=== PATIENT | female | born 1995 | race Two or more races ===

== ENCOUNTER 2020-12-07 15:16 | Emergency (ER) | payer OTHER ==
[~2020-12-07] VITALS: Ht 157.5 cm; Wt 81.6 kg
[2020-12-07] MEDS ORDERED: PRENATABS FA T1 EACH PO (15:36)
== END 2020-12-07 19:26 | disposition home or self-care (01) ==
LOC: ER 15:16
DX: O20.8 Other hemorrhage in early pregnancy (principal); Z3A.08 8 weeks gestation of pregnancy

== ENCOUNTER 2021-02-05 19:43 | Emergency (ER) | payer OTHER ==
[~2021-02-05] VITALS: Ht 152.4 cm; Wt 84.8 kg
[~2021-02-05 19:43] MED LIST: PRENATABS FA T1 EACH PO
[2021-02-05] MEDS ORDERED: 3-DAY VAGINAL C21 GM VAG (21:40)
[2021-02-06] MEDS ORDERED: CEPHALEXIN500 M1 PO (02:02)
== END 2021-02-06 02:17 | disposition home or self-care (01) ==
LOC: ER 19:43
DX: O98.812 Other maternal infectious and parasitic diseases complicating pregnancy, second trimester (principal); Z34.02 Encounter for supervision of normal first pregnancy, second trimester

== ENCOUNTER 2021-02-08 17:03 | Emergency (ER) | payer OTHER ==
[~2021-02-08] VITALS: Ht 157.5 cm; Wt 84.8 kg
[~2021-02-08 17:03] MED LIST changes: +3-DAY VAGINAL C21 GM VAG; +CEPHALEXIN500 M1 PO
[2021-02-08] MEDS ORDERED: INTESTINEX680 M1 PO (23:09)
[2021-02-08] MEDS ORDERED: MACROBID 100 M100 MG PO (23:09)
== END 2021-02-09 03:55 | disposition home or self-care (01) ==
LOC: ER 17:03
DX: O23.42 Unspecified infection of urinary tract in pregnancy, second trimester (principal); R10.31 Right lower quadrant pain; Z34.02 Encounter for supervision of normal first pregnancy, second trimester

== ENCOUNTER → 2021-02-27 | Outpatient (CLI) | payer OTHER ==
[~2021-02-27] MED LIST changes: +INTESTINEX680 M1 PO; +MACROBID 100 M100 MG PO
== END | disposition home or self-care (01) ==
LOC: PRENATAL 13:30
PROVIDERS: ATTEND Obstetrics & Gynecology Maternal & Fetal Medicine
DX: O35.0XX1 Maternal care for (suspected) central nervous system malformation in fetus, fetus 1 (principal); O35.3XX1 Maternal care for (suspected) damage to fetus from viral disease in mother, fetus 1; O98.512 Other viral diseases complicating pregnancy, second trimester; O28.1 Abnormal biochemical finding on antenatal screening of mother; O99.212 Obesity complicating pregnancy, second trimester; Z36.89 Encounter for other specified antenatal screening; Z3A.20 20 weeks gestation of pregnancy

== ENCOUNTER 2021-07-14 07:10 | Inpatient (IN) | payer OTHER ==
[~2021-07-14] VITALS: Ht 160 cm; Wt 3.2 kg
== END 2021-07-18 16:19 | disposition home or self-care (01) | DRG 788 ==
LOC: OBS/DEL 07:10 → LDR 17:08 → OBS/DEL 17:08 → OB/GYN 07-15 20:58
PROVIDERS: ADMIT Obstetrics & Gynecology; ATTEND Obstetrics & Gynecology
PROC: 4A1HXFZ Monitoring of Products of Conception, Cardiac Rhythm, External Approach (ICD-10-PCS; 2021-07-15)
PROC: 3E033VJ Introduction of Other Hormone into Peripheral Vein, Percutaneous Approach (ICD-10-PCS; 2021-07-15)
PROC: 10D00Z1 Extraction of Products of Conception, Low, Open Approach (ICD-10-PCS; principal; 2021-07-15 18:00)
DX: O62.1 Secondary uterine inertia (principal); O36.8130 Decreased fetal movements, third trimester, not applicable or unspecified; O99.824 Streptococcus B carrier state complicating childbirth; Z3A.39 39 weeks gestation of pregnancy; Z37.0 Single live birth

== ENCOUNTER 2022-01-15 10:06 | Emergency (ER) | payer OTHER ==
[~2022-01-15] VITALS: Ht 160 cm; Wt 88.5 kg
== END 2022-01-15 14:14 | disposition home or self-care (01) ==
LOC: ER 10:06
DX: L76.34 Postprocedural seroma of skin and subcutaneous tissue following other procedure (principal)